=== PATIENT | female | born 1975 | race Caucasian/White ===

== ENCOUNTER 2017-07-24 08:18 | Emergency (ER) | payer OTHER ==
[2017-07-24 08:23] VITALS: PULSE 88; O2SAT 98
--- NOTE | 2017-07-24 08:32 | C.PDOC ---
History Of Present Illness 41 y/o female presents to ED with c/o right arm numbness, on and off, for 3-4 days. Patient reports some occasional right sided chest wall pain. Denies fever , chills, nausea, vomiting, trauma, slurred speech, visual changes. Patient speaking in complete sentences. Time Seen by Provider: 07/24/17 08:31 Chief Complaint (Nursing): Chest Pain History Per: Patient History/Exam Limitations: no limitations Onset/Duration Of Symptoms: Days Current Symptoms Are (Timing): Still Present Pain Scale Rating Of: 4 Quality: "Pain" Associated Symptoms: denies: Nausea, Diaphoresis, Syncope Exacerbating Factors: None Recent travel outside of the [place]: No Past Medical History Reviewed: Historical Data, Nursing Documentation, Vital Signs Vital Signs: Last Vital Signs Temp 98.2 F 07/24/17 08:23 Pulse 88 07/24/17 08:23 Resp 20 07/24/17 08:23 BP 120/85 07/24/17 08:23 Pulse Ox 98 07/24/17 11:43 - Medical History PMH: Diabetes Family History: States: Unknown Family Hx - Social History Hx Tobacco Use: No Hx Alcohol Use: No Hx Substance Use: No - Immunization History Hx Tetanus Toxoid Vaccination: No Hx Influenza Vaccination: No Hx Pneumococcal Vaccination: No Review Of Systems Constitutional: Negative for: Fever, Chills Cardiovascular: Negative for: Palpitations Respiratory: Negative for: Cough, Shortness of Breath Gastrointestinal: Negative for: Nausea, Vomiting, Abdominal Pain Musculoskeletal: Positive for: Other (right chest wall discomfort) Skin: Negative for: Rash Neurological: Positive for: Numbness (right arm, intermittent). Negative for: Change in Speech, Headache, Dizziness Physical Exam - Physical Exam Appears: Non-toxic, No Acute Distress Skin: Warm, Dry Head: Atraumatic, Normacephalic Chest: Symmetrical, No Ecchymosis, Other (mildly reproducible right chest wall discomfort) Cardiovascular: Rhythm Regular Respiratory: No Accessory Muscle Use, No Rales, No Rhonchi, No Wheezing Gastrointestinal/Abdominal: Soft, No Tenderness, No Guarding, No Rebound Back: No Paraspinal Tenderness Extremity: Normal ROM Neurological/Psych: Oriented x3, Normal Speech, Normal Cognition ED Course And Treatment - Laboratory Results Result Diagrams: 07/24/17 09:01 07/24/17 09:01 ECG: Interpreted By Me, Viewed By Me ECG Rhythm: Sinus Rhythm (83), Nonspecific Changes O2 Sat by Pulse Oximetry: 98 Pulse Ox Interpretation: Normal - Radiology CXR: Interpreted by Me, Viewed By Me CXR Interpretation: No: Infiltrates, Fracture, Pnemothorax - CT Scan/US CT HEAD Other Rad Studies (CT/US): Read By Radiologist, Radiology Report Reviewed CT/US Interpretation: IMPRESSION: No acute intracranial abnormality. CT CERVICAL SPINE Other Rad Studies (CT/US): Read By Radiologist, Radiology Report Reviewed CT/US Interpretation: Impression: Degenerative changes in the cervical spine with a suggestion of posterior disc bulges as described most prominent at the C5 -6 level. If pain or numbness persists, consider further evaluation with MRI. Prominent heterogeneous and nodular thyroid gland. Few scattered calcifications in the left lobe of the thyroid. Correlation with thyroid ultrasound is recommended if clinically indicated. Progress Note: EKG, CT c-spine and head, labs ordered and reviewed. Treated with aspirin. Reevaluation Time: 11:43 Reassessment Condition: Improved NIHSS Stroke Scale - Date/Time Evaluation Performed Date Performed: 07/24/17 Time Performed: 08:30 When Was NIHSS Performed: Baseline - How Severe is the Stoke Level of Consciousness: 0=Alert LOC to Questions: 0=Both comments correct LOC to commands: 0=Obeys both correctly Best Gaze: 0=Normal Visual: 0=No visual loss Facial: 0=Normal Motor Arm - Left: 0=No drift Motor Arm - Right: 0=No drift Motor Leg - Left: 0=No drift Motor Leg - Right: 0=No drift Limb Ataxia: 0=Absent Sensory: 0=Normal Best Language: 0=No aphasia Dysarthia: 0=Normal articulation Extinction & Inattention (Neglect): 0=Normal, no object Score: 0 Severity Of Stroke: 0= No Stroke Disposition Counseled Patient/Family Regarding: Studies Performed, Diagnosis, Need For Followup - Disposition Referrals: Radha Hagan [Staff Provider] - Disposition: HOME/ ROUTINE Disposition Time: 08:31 Condition: FAIR Additional Instructions: Please return if symptoms recur Instructions: Costochondritis (ED), Paresthesia (ED) Forms: [facility] (Slovenian) - Clinical Impression Clinical Impression: Chest wall pain, Paresthesia, Cervical neck pain with evidence of disc disease - Scribe Statement The provider has reviewed the documentation as recorded by the Scribe SM All medical record entries made by the Scribe were at my direction and personally dictated by me. I have reviewed the chart and agree that the record accurately reflects my personal performance of the history, physical exam, medical decision making, and the department course for this patient. I have also personally directed, reviewed, and agree with the discharge instructions and disposition.
[2017-07-24] MEDS ORDERED: Aspirin 325 mg EC Tablets PO STA (08:36)
[2017-07-24 09:08] LABS: BASO % 0.4 % (0.0-2.0); EOS # 0.1 K/uL (0.0-0.7); HEMATOCRIT 39.7 % (34.0-47.0); LYMPH # 2.3 K/uL (1.0-4.3); LYMPH % 35.3 % (20.0-40.0); MEAN CELL VOLUME 87.7 fL (81.0-99.0); MEAN CORPUSCULAR HEMOGLOBIN 30.3 pg (27.0-31.0); MEAN CORPUSCULAR HGB CONC 34.6 g/dL (33.0-37.0); MEAN PLATELET VOLUME 8.3 fL (7.2-11.7); MONO # 0.5 K/uL (0.0-0.8); MONO % 7.6 % (0.0-10.0); NRBC % 0.1 % (0.0-2.0); RED CELL DISTRIBUTION WIDTH 13.2 % (11.5-14.5); WHITE BLOOD COUNT 6.5 K/uL (4.8-10.8)
[2017-07-24 09:17] LABS: CHLORIDE 98 mmol/L (98-107); RBC URINE < 1 /hpf (0-3); SODIUM 134 mmol/L (132-148); URINE BACTERIA RARE (<OCC); URINE BILIRUBIN NEGATIVE (NEGATIVE); URINE BLOOD NEGATIVE (NEGATIVE); URINE COLOR Yellow (YELLOW); URINE GLUCOSE (UA) NORMAL (Normal); URINE KETONE NEGATIVE (NEGATIVE); URINE LEUKOCYTE ESTERASE NEG Leu/uL (Negative); URINE PROTEIN NEGATIVE (NEGATIVE); URINE UROBILINOGEN NORMAL mg/dL (0.2-1.0); WBC URINE 1 /hpf (0-5)
[2017-07-24 09:18] LABS: POTASSIUM 3.7 mmol/L (3.6-5.2)
[2017-07-24 09:20] LABS: ALB/GLOB RATIO 1.2 (1.0-2.1); AST/SGOT 19 U/L (14-36); BILIRUBIN,TOTAL 0.6 mg/dL (0.2-1.3); BLOOD UREA NITROGEN 13 mg/dL (7-17); CARBON DIOXIDE 26 mmol/L (22-30); GFR AFRICAN-AMERICAN > 60; TOTAL PROTEIN 7.7 g/dL (6.3-8.3)
[2017-07-24 09:21] LABS: ALKALINE PHOSPHATASE 45 U/L (38-126); ALT/SGPT 31 U/L (9-52); CALCIUM 8.9 mg/dl (8.6-10.4); GLUCOSE,RANDOM 121 mg/dL (65-105)
[2017-07-24] MEDS ORDERED: Aspirin 325 mg EC Tablets PO ONE (09:48)
--- NOTE | 2017-07-24 10:15 | CT ---
PROCEDURE: CT HEAD WITHOUT CONTRAST. HISTORY: numbness right arm COMPARISON: None available. TECHNIQUE: Axial computed tomography images were obtained through the head/brain without intravenous contrast. Radiation dose: Total exam DLP = 916 mGy-cm. This CT exam was performed using one or more of the following dose reduction techniques: Automated exposure control, adjustment of the mA and/or kV according to patient size, and/or use of iterative reconstruction technique. FINDINGS: HEMORRHAGE: No intracranial hemorrhage. BRAIN: No mass effect or edema. No atrophy or chronic microvascular ischemic changes. Punctate right basal ganglia calcification. Streak artifact limits evaluation of the posterior fossa. VENTRICLES: Unremarkable. No hydrocephalus. CALVARIUM: Unremarkable. PARANASAL SINUSES: Unremarkable as visualized. No significant inflammatory changes. MASTOID AIR CELLS: Unremarkable as visualized. No inflammatory changes. OTHER FINDINGS: None. IMPRESSION: No acute intracranial abnormality. If focal neurologic deficit persists, consider MRI.
--- NOTE | 2017-07-24 10:27 | CT ---
CT cervical spine History: Numbness right arm. Comparison: None available. Technique: Multiple contiguous axial images were performed through the cervical spine without the use of intravenous contrast. Subsequently, sagittal and coronal reformatted images were obtained. This CT exam was performed using one or more of the following dose reduction techniques: Automated exposure control, adjustment of the mA and/or kV according to patient size, and/or use of iterative reconstruction technique. Findings: Spine alignment is maintained. Vertebral body heights are preserved. Lucency through the posterior spinous process the C2 vertebral body may be congenital or anatomic. Clinical correlation. No evidence of acute displaced fracture or dislocation. Minimal anterior osteophytosis at the C5-6 level. Limited evaluation for disc disease on CT examination. Correlation with MRI would be helpful for further evaluation if there is concern for disc pathology. Suggestion of posterior disc bulges at the C4-5, C5-6, and C6-7 levels with the most prominent being at the C5-6 level. Clinical correlation. Prominent heterogeneous and nodular thyroid gland. Few scattered calcifications in the left lobe of the thyroid. Correlation with thyroid ultrasound is recommended if clinically indicated. Mild productive change at the atlantodental interval. Impression: Degenerative changes in the cervical spine with a suggestion of posterior disc bulges as described most prominent at the C5-6 level. If pain or numbness persists, consider further evaluation with MRI. Prominent heterogeneous and nodular thyroid gland. Few scattered calcifications in the left lobe of the thyroid. Correlation with thyroid ultrasound is recommended if clinically indicated.
[2017-07-24 11:45] VITALS: BP 105/65; RESP 18; TEMP 98.3
--- NOTE | 2017-07-27 18:38 | CARD ---
APPROVED REPORT EKG Measurement Heart [id number] <Conclusion> Normal sinus rhythm Possible Left atrial enlargement Borderline ECG
== END 2017-07-24 11:45 | disposition home or self-care (01) ==
LOC: C.ER 08:18
DX: R07.89 Other chest pain (principal); R20.2 Paresthesia of skin; M50.90 Cervical disc disorder, unspecified, unspecified cervical region

== ENCOUNTER 2017-10-05 07:43 | Emergency (ER) | payer OTHER ==
[2017-10-05 07:55] VITALS: BP 132/85; PULSE 80; RESP 16; TEMP 98.5; O2SAT 96
--- NOTE | 2017-10-05 08:56 | C.PDOC ---
History Of Present Illness 41 yr old female presents to the ER for evaluation of right heel pain, gradually worsening for the past 3 days. Patient states she noted some swelling to the medial aspect of the right foot. Denies trauma, injury, fever, skin changes, sensory deficits, vascular deficits, weakness or numbness. Ambulate to Ed for evaluation, not in any apparent distress. Time Seen by Provider: 10/05/17 08:13 Chief Complaint (Nursing): Lower Extremity Problem/Injury History Per: Patient History/Exam Limitations: no limitations Onset/Duration Of Symptoms: Days (3) Current Symptoms Are (Timing): Still Present Recent travel outside of the [place]: No Past Medical History Reviewed: Historical Data, Nursing Documentation, Vital Signs Vital Signs: Last Vital Signs Temp 98.5 F 10/05/17 07:51 Pulse 80 10/05/17 07:51 Resp 16 10/05/17 07:51 BP 132/85 10/05/17 07:51 Pulse Ox 96 10/05/17 09:31 - Medical History PMH: Diabetes Family History: States: No Known Family Hx - Social History Hx Tobacco Use: No Hx Alcohol Use: No Hx Substance Use: No - Immunization History Hx Tetanus Toxoid Vaccination: No Hx Influenza Vaccination: No Hx Pneumococcal Vaccination: No Review Of Systems Except As Marked, All Systems Reviewed And Found Negative. Constitutional: Negative for: Fever Musculoskeletal: Positive for: Other ((+) Right heel pain and swelling) Skin: Negative for: Rash, Lesions, Jaundice Neurological: Negative for: Weakness, Numbness Physical Exam - Physical Exam Appears: Well, Non-toxic, No Acute Distress Skin: Warm, Dry, No Rash, No Ecchymosis Extremity: Normal ROM (Right ankle and foot), Tenderness (small area of edema and mild tenderness over medial aspect heel. NO deformity, no skin changes. FAROM, no neurovascular deficits.), No Calf Tenderness, Capillary Refill (less than 2sec to Right foot), No Deformity Neurological/Psych: Oriented x3, Normal Speech, Normal Motor, Normal Sensation, Normal Reflexes ED Course And Treatment O2 Sat by Pulse Oximetry: 96 (RA) Pulse Ox Interpretation: Normal - Other Rad X-Ray - Right Foot X-Ray: Viewed By Me Interpretation: (+)heel spur, small Progress Note: On re-evaluation, pt is afebrile, hemodynamicaly stable. NOn- toxic. Ambulatory in ED with stable gait. Right foot: mild edema and tendreness over medial aspect heel. NO cellulitis, no deformity. FAROM, no neurovascular deficits. Imaging review and c/w small Right heel spur. Pt advised and ef. to F/u with Plastic Eye Technician in 2-3 days for re-eavl. return if any new changes. Medical Decision Making Medical Decision Making: PLAN: * X-Ray - Right Foot Disposition Counseled Patient/Family Regarding: Studies Performed, Diagnosis, Need For Followup, Rx Given - Disposition Referrals: [facility] [Outside] Podiatry Clinic [Outside] Disposition: HOME/ ROUTINE Disposition Time: 09:20 Condition: STABLE Prescriptions: Ibuprofen [Motrin] 1 tab PO TID PRN #30 tab PRN Reason: Pain Instructions: Heel Spur (ED) Forms: [employer] (Bermudian) - Clinical Impression Clinical Impression: Heel spur - PA / NUTRIENT MANAGEMENT SPECIALIST / Resident Statement MD/DO has reviewed & agrees with the documentation as recorded. - Scribe Statement The provider has reviewed the documentation as recorded by the Scribe Martha Henley All medical record entries made by the Scribe were at my direction and personally dictated by me. I have reviewed the chart and agree that the record accurately reflects my personal performance of the history, physical exam, medical decision making, and the department course for this patient. I have also personally directed, reviewed, and agree with the discharge instructions and disposition.
--- NOTE | 2017-10-05 09:29 | RAD ---
PROCEDURE: Right Foot Radiographs. HISTORY: Pain COMPARISON: None. FINDINGS: BONES: There is no acute displaced fracture or bone destruction. Bone alignment and mineralization are normal. There is a small plantar calcaneal spur. JOINTS: Normal. SOFT TISSUES: Normal. OTHER FINDINGS: None. IMPRESSION: No acute fracture or dislocation.
== END 2017-10-05 09:48 | disposition home or self-care (01) ==
LOC: C.ER 07:43
DX: M77.31 Calcaneal spur, right foot (principal)